=== PATIENT | male | born 1975 | race Caucasian/White ===

== ENCOUNTER 2019-11-02 19:02 | Emergency (ER) | payer MEDICAID ==
[~2019-11-02] VITALS: Ht 190.5 cm; Wt 127.0 kg
[~2019-11-02 19:02] MED LIST: AMOXICILLIN 50500 MG PO; ZPAK PO
[2019-11-02] MEDS ORDERED: LISINOPRIL-HCT1 EACH PO (19:18)
[2019-11-02] MEDS ORDERED: TOPROL XL25 MG PO (19:18)
[2019-11-02] MEDS ORDERED: IBUPROFEN 800800 MG PO (19:59)
[2019-11-02] MEDS ORDERED: PERCOCET 7.5-31 EAC1 PO (19:59)
[2019-11-02] MEDS ORDERED: FLEXERIL PO (19:59)
[2019-11-02 20:12] VITALS: BP 174/85
== END 2019-11-02 20:12 | disposition home or self-care (01) ==
LOC: M.ERS 19:02
DX: M25.512 Pain in left shoulder (principal); I10 Essential (primary) hypertension